=== PATIENT | male | born 1985 | race Caucasian/White ===

== ENCOUNTER 2024-03-08 17:49 | Emergency (ER) | payer OTHER ==
[2024-03-08 17:57] VITALS: BP 128/83; PULSE 86; RESP 16; TEMP 98; BMI 25.0
[2024-03-08] MEDS: LACTATED RINGERS SOLUTION 1000 ML INFUS.BAG IV ONE (18:54)
[2024-03-08] MEDS: ACETAMINOPHEN 1000 MG/100 ML BAG IVPB ONE (18:54)
[2024-03-08 19:09] LABS: HEMATOCRIT 39.8 % (35.4-49); HEMOGLOBIN 13.2 G/dL (11.7-16.9); MCH 28.3 pg (25.7-33.7); MCHC 33.2 g/dl (32.0-35.9); MEAN CELL VOLUME 85.3 fl (80-96); MEAN PLT VOLUME 8.1 fl (7.5-11.1); PLATELET COUNT 170.4 10^3/uL (134-434); RBC 4.67 10^6/uL (4.00-5.60); RDW 14.7 % (11.9-15.9); WHITE BLOOD COUNT 5.7 10^3/uL (4.0-10.8)
[2024-03-08 19:12] LABS: INR 0.96 (0.83-1.09)
[2024-03-08 19:14] LABS: ACTIVATED PTT 31.4 SECONDS (25.2-36.5)
[2024-03-08 19:20] LABS: PLATELET ESTIMATE ADEQUATE
[2024-03-08 19:22] LABS: ALBUMIN 4.4 g/dl (3.4-5.0); BILIRUBIN,TOTAL 0.4 mg/dl (0.2-1); CALCIUM 9.5 mg/dl (8.5-10.1); CREATININE 1.8 mg/dl (0.6-1.3); POTASSIUM 4.1 mmol/L (3.5-5.1); TOT PROT 6.7 g/dl (6.4-8.2)
[2024-03-08] MEDS ORDERED: TAMSULOSIN HCL 0.4 MG CAP ONE (19:55)
[2024-03-08] MEDS: TAMSULOSIN HCL 0.4 MG CAP PO ONE (19:56)
== END 2024-03-08 20:01 | disposition home or self-care (01) ==
LOC: FER 17:49
PROC: 3E033NZ Introduction of Analgesics, Hypnotics, Sedatives into Peripheral Vein, Percutaneous Approach (ICD-10-PCS; principal; 2024-03-08)
PROC: 3E033GC Introduction of Other Therapeutic Substance into Peripheral Vein, Percutaneous Approach (ICD-10-PCS; 2024-03-08)
DX: N20.0 Calculus of kidney (principal); R10.9 Unspecified abdominal pain
CPT/HCPCS: 36415; 74176-TC; 80053; 81003; 81015; 85025; 85610; 85730; 86850; 86900; 86901; 87086; 99284-25; J0131